=== PATIENT | female | born 1985 | race Asian ===

== ENCOUNTER 2017-12-18 15:56 | Outpatient (CLI) | payer OTHER | END 2017-12-18 15:59 | disposition short-term general hospital (02) | LOC: AMB 15:56 | DX: Z04.8 Encounter for examination and observation for other specified reasons (principal); V49.9XXA Car occupant (driver) (passenger) injured in unspecified traffic accident, initial encounter; Y93.89 Activity, other specified; Y92.89 Other specified places as the place of occurrence of the external cause | CPT/HCPCS: A0425; A0429 ==

== ENCOUNTER 2017-12-18 16:08 | Emergency (ER) | payer OTHER ==
[~2017-12-18] VITALS: Ht 162.6 cm; Wt 84.4 kg
[2017-12-18 16:15] VITALS: TEMP 99.3
[2017-12-18 17:54] VITALS: BP 167/95
== END 2017-12-18 18:00 | disposition home or self-care (01) ==
LOC: ED 16:08
DX: S00.93XA Contusion of unspecified part of head, initial encounter (principal); V49.40XA Driver injured in collision with unspecified motor vehicles in traffic accident, initial encounter
CPT/HCPCS: 99283